=== PATIENT | male | born 1960 | race Hispanic/Latino ===

== ENCOUNTER → 2020-08-28 | Outpatient (CLI) | payer MEDICARE | END | disposition home or self-care (01) | LOC: RAH 08:23 | PROVIDERS: ATTEND Urology | DX: N20.0 Calculus of kidney (principal); N28.1 Cyst of kidney, acquired; R31.29 Other microscopic hematuria | CPT/HCPCS: 74176 ==

== ENCOUNTER 2020-11-09 23:53 | Emergency (ER) | payer MEDICARE ==
[2020-11-10] MEDS ORDERED: OCTYL 2-CYANOACRYLATE 1 EACH TP ONE (02:41)
== END 2020-11-10 05:07 | disposition home or self-care (01) ==
LOC: EDH 23:53
DX: S01.81XA Laceration without foreign body of other part of head, initial encounter (principal); X58.XXXA Exposure to other specified factors, initial encounter; Y93.89 Activity, other specified; Y92.89 Other specified places as the place of occurrence of the external cause; Y99.8 Other external cause status
CPT/HCPCS: 12013; 70450

== ENCOUNTER 2020-11-22 23:20 | Inpatient (IN) | payer MEDICARE ==
[~2020-11-22] VITALS: Ht 177.8 cm; Wt 57.3 kg
[2020-11-22 23:39] LABS: BASOPHILS % (AUTO) 0.1 % (0.0-5.0); HEMATOCRIT 36.5 % (42-54); LYMPHOCYTES % (AUTO) 6.4 % (21.0-51.0); MEAN CORPUSCULAR HEMOGLOBIN 28.5 pg (27.0-33.0); MEAN CORPUSCULAR VOLUME 91.9 fL (79-99); MONOCYTES % (AUTO) 2.4 % (3.0-13.0); NEUTROPHILS % (AUTO) 90.5 % (40.0-77.0); PLATELET COUNT (AUTO) 94 K/uL (130-400); RED BLOOD CELL COUNT(AUTO) 3.97 MIL/uL (4.50-6.20); RED CELL DISTRIBUTION WIDTH 17.1 % (11.0-15.5); WHITE BLOOD COUNT (AUTO) 8.8 K/uL (4.8-10.8)
[2020-11-22 23:52] LABS: INR 1.21 (0.85-1.15)
[2020-11-22 23:54] LABS: PARTIAL THROMBOPLASTIN TIME 26.4 SEC (26.3-35.5)
[2020-11-22 23:57] LABS: ALBUMIN 1.8 g/dL (3.5-5.0); BILIRUBIN,TOTAL 1.2 mg/dL (0.2-1.0); TOTAL PROTEIN, SERUM 7.3 g/dL (6.0-8.3)
[2020-11-23] VITALS (18 sets, daily range): BP systolic 109–154; BP diastolic 41–96
[2020-11-23] LABS: POTASSIUM 2.8 mmol/L (3.5-5.1)
[2020-11-23 00:17] LABS: B-TYPE NATRIURETIC PEPTIDE 21 pg/mL (0-100)
[2020-11-23 00:36] LABS: APPEARANCE,URINE Cloudy (CLEAR); BILIRUBIN,URINE Negative (NEGATIVE); COLOR,URINE Yellow (YELLOW); GLUCOSE, URINE (UA) Negative (NEGATIVE); KETONES,URINE Negative (NEGATIVE); LEUKOCYTE ESTERASE ,URINE Large (NEGATIVE); NITRATE,URINE Negative (NEGATIVE); OCCULT BLOOD,URINE Small (NEGATIVE); PH,URINE 5.5 (5.0-8.0); PROTEIN,URINE Trace mg/dL (NEGATIVE)
[2020-11-23 01:00] LABS: BACTERIA,URINE Many /HPF (None Seen); MUCUS,URINE Few LPF (None Seen); SQUAMOUS EPITHELIAL CELL,UR Rare /HPF (0-2)
[2020-11-23] MEDS ORDERED: CEFTRIAXONE 2GM VIAL ONE (01:50)
[2020-11-23] MEDS ORDERED: ACETAMINOPHEN 325 MG TAB PO PRN ×2 (02:00→12:00)
[2020-11-23] MEDS ORDERED: ONDANSETRON 4MG INJ IV PRN (02:00)
[2020-11-23] MEDS ORDERED: POTASSIUM CHLORIDE 20MEQ/100ML 100 ML IV ONE (02:05)
[2020-11-23 04:39] LABS: % IRON SATURATION 30.7 % (30-44)
[2020-11-23 04:49] LABS: CREATINE KINASE, TOTAL 11 U/L (21-232); MYOGLOBIN 168 ng/mL (10-92); PHOSPHORUS 4.3 mg/dL (2.5-4.9); TROPONIN I < 0.04 ng/mL (0.00-0.06)
[2020-11-23] MEDS: DEXTROSE 5%-WATER 1,000 ML IV SCH ×3 (05:51→21:02)
[2020-11-23] MEDS: MEROPENEM 500 MG VIAL IV SCH ×3 (06:16→21:45)
[2020-11-23 08:23] LABS: HEMATOCRIT 35.3 % (42-54); LYMPHOCYTES % (AUTO) 6.6 % (21.0-51.0); MEAN CORPUSCULAR HEMOGLOBIN 28.3 pg (27.0-33.0); MEAN CORPUSCULAR HGB CONC 30.3 g/dL (32.0-36.0); MEAN CORPUSCULAR VOLUME 93.4 fL (79-99); MONOCYTES % (AUTO) 2.2 % (3.0-13.0); NEUTROPHILS % (AUTO) 90.4 % (40.0-77.0); PLATELET COUNT (AUTO) 68 K/uL (130-400); RED BLOOD CELL COUNT(AUTO) 3.78 MIL/uL (4.50-6.20); RED CELL DISTRIBUTION WIDTH 17.1 % (11.0-15.5); WHITE BLOOD COUNT (AUTO) 6.5 K/uL (4.8-10.8)
[2020-11-23 08:35] LABS: CARBON DIOXIDE 29 mmol/L (21-32); CREATINE KINASE, TOTAL 14 U/L (21-232); CREATININE 2.1 mg/dL (0.5-1.5); GLOMERULAR FILTR. RATE CALC 35 mL/min (>60); GLUCOSE,RANDOM 151 mg/dL (70-105); MYOGLOBIN 184 ng/mL (10-92); POTASSIUM 3.1 mmol/L (3.5-5.1); TROPONIN I < 0.04 ng/mL (0.00-0.06)
[2020-11-23 08:39] LABS: CHLORIDE 137 mmol/L (101-111); SODIUM SERUM 173 mmol/L (136-145)
[2020-11-23 08:40] LABS: UREA NITROGEN, BLOOD 78 mg/dL (7-18)
[2020-11-23] MEDS ORDERED: FAMOTIDINE 20MG VIAL IV SCH (09:00)
[2020-11-23] MEDS: ENOXAPARIN SODIUM 30 MG/0.3 ML SQ SCH (09:30)
[2020-11-23 09:39] LABS: PLATELET MORPHOLOGY COMMENT DECREASED
[2020-11-23 11:16] LABS: CREATININE 1.9 mg/dL (0.5-1.5)
[2020-11-23 11:19] LABS: POTASSIUM 2.7 mmol/L (3.5-5.1)
[2020-11-23] MEDS ORDERED: LACTATED RINGERS 1000ML 1,000 ML IV SCH (11:30)
[2020-11-23] MEDS ORDERED: ACET325T51 PO (12:14)
[2020-11-23] MEDS ORDERED: BUSP5TAB3 PO (12:14)
[2020-11-23] MEDS ORDERED: PANT40TA55 PO (12:14)
[2020-11-23] MEDS ORDERED: POTA40LI17 PO (12:14)
[2020-11-23] MEDS ORDERED: PARO-66 PO (12:32)
[2020-11-23] MEDS ORDERED: FERR325T22 PO (12:32)
[2020-11-23] MEDS ORDERED: BENZ1TAB10 PO (12:32)
[2020-11-23] MEDS ORDERED: FINA5TAB41 PO (12:32)
[2020-11-23] MEDS ORDERED: LUBI24CA2 PO (12:32)
[2020-11-23] MEDS ORDERED: MIDO10TA PO (12:32)
[2020-11-23] MEDS ORDERED: BENZTROPINE MESYLATE 1 MG PO SCH (14:00)
[2020-11-23] MEDS: BENZTROPINE 0.5MG TAB PO SCH ×2 (14:47→21:01)
[2020-11-23 16:03] LABS: POTASSIUM 3.5 mmol/L (3.5-5.1)
[2020-11-23 16:15] LABS: CREATINE KINASE, TOTAL 47 U/L (21-232); MYOGLOBIN 165 ng/mL (10-92); TROPONIN I < 0.04 ng/mL (0.00-0.06)
[2020-11-23] MEDS: BUSPIRONE HCL 5 MG TABLET PO SCH (17:08)
[2020-11-23] MEDS: TAMSULOSIN HCL 0.4 MG CAP.ER.24H PO SCH (21:01)
[2020-11-23 21:07] LABS: POTASSIUM 2.9 mmol/L (3.5-5.1)
[2020-11-23] MEDS ORDERED: POTASSIUM CHLORIDE 20MEQ/100ML 100 ML IV PRN (21:30)
[2020-11-23] MEDS ORDERED: POTASSIUM CHLORIDE 10% ELIXIR 20 MEQ/15 ML UDCUP ONE (21:47)
[2020-11-23] MEDS: POTASSIUM CHLORIDE 10% ELIXIR 20 MEQ/15 ML UDCUP PO PRN (21:59)
[2020-11-23] MEDS: POTASSIUM CHLORIDE 20MEQ/100ML 100 ML IV PRN (21:59)
[2020-11-24] VITALS (24 sets, daily range): BP systolic 106–158; BP diastolic 60–90
[2020-11-24 00:41] LABS: POTASSIUM 3.5 mmol/L (3.5-5.1)
[2020-11-24 03:42] LABS: EOSINOPHILS % (AUTO) 0.5 % (0.0-8.0); HEMATOCRIT 32.2 % (42-54); LYMPHOCYTES % (AUTO) 9.1 % (21.0-51.0); MEAN CORPUSCULAR HEMOGLOBIN 27.9 pg (27.0-33.0); MEAN CORPUSCULAR HGB CONC 29.2 g/dL (32.0-36.0); MEAN CORPUSCULAR VOLUME 95.5 fL (79-99); MONOCYTES % (AUTO) 1.9 % (3.0-13.0); PLATELET COUNT (AUTO) 54 K/uL (130-400); RED BLOOD CELL COUNT(AUTO) 3.37 MIL/uL (4.50-6.20); RED CELL DISTRIBUTION WIDTH 17.5 % (11.0-15.5); WHITE BLOOD COUNT (AUTO) 6.2 K/uL (4.8-10.8)
[2020-11-24 03:51] LABS: CREATININE 2.1 mg/dL (0.5-1.5); POTASSIUM 3.6 mmol/L (3.5-5.1)
[2020-11-24] MEDS: DEXTROSE 5%-WATER 1,000 ML IV SCH ×3 (05:16→20:18)
[2020-11-24] MEDS: MEROPENEM 500 MG VIAL IV SCH ×3 (05:54→21:07)
[2020-11-24] MEDS: BUSPIRONE HCL 5 MG TABLET PO SCH ×2 (07:37→17:12)
[2020-11-24] MEDS: FERROUS SULFATE 325 MG TABLET.DR PO SCH (08:20)
[2020-11-24] MEDS: PAROXETINE HCL 20 MG TABLET PO SCH (08:20)
[2020-11-24] MEDS: FINASTERIDE 5 MG TABLET PO SCH (08:21)
[2020-11-24] MEDS: ENOXAPARIN SODIUM 30 MG/0.3 ML SQ SCH (08:21)
[2020-11-24] MEDS: BENZTROPINE 0.5MG TAB PO SCH ×3 (08:35→20:11)
[2020-11-24] MEDS ORDERED: PANTOPRAZOLE 40 MG TAB DR PO SCH (09:00)
[2020-11-24] MEDS ORDERED: NON-FORMULARY MEDICATION 1 EACH (Ferrous Sulfate 325 MG) PO SCH (09:00)
[2020-11-24 09:01] LABS: CREATININE 2.1 mg/dL (0.5-1.5); POTASSIUM 3.2 mmol/L (3.5-5.1)
[2020-11-24] MEDS: LUBIPROSTONE 24 MCG CAP PO SCH (09:06)
[2020-11-24] MEDS ORDERED: ALBUMIN (HUMAN) 25% 50 ML IV SCH (10:38)
[2020-11-24 10:41] LABS: CHLORIDE,URINE RANDOM 33 mmol/L (110-250); POTASSIUM,URINE RANDOM 29 mmol/L (25-125); SODIUM,URINE RANDOM 16 mmol/l (40-220)
[2020-11-24 12:57] LABS: POTASSIUM 3.1 mmol/L (3.5-5.1)
[2020-11-24] MEDS ORDERED: DIATR MEGLU/DIATRIZOATE SODIUM 30 ML BOTTLE ONE (16:26)
[2020-11-24] MEDS ORDERED: GLYCERIN ADULT SUPP.RECT RC SCH (17:00)
[2020-11-24 17:10] LABS: POTASSIUM 2.9 mmol/L (3.5-5.1)
[2020-11-24] MEDS: POTASSIUM CHLORIDE 10% ELIXIR 20 MEQ/15 ML UDCUP PO PRN (17:16)
[2020-11-24] MEDS: POTASSIUM CHLORIDE 20MEQ/100ML 100 ML IV PRN (19:44)
[2020-11-24] MEDS: TAMSULOSIN HCL 0.4 MG CAP.ER.24H PO SCH (20:11)
[2020-11-24] MEDS: PHARMACY COMMUNICATION MISC SCH ×2 (20:12→20:13)
[2020-11-24 20:31] LABS: CREATININE 1.9 mg/dL (0.5-1.5); POTASSIUM 3.3 mmol/L (3.5-5.1)
[2020-11-25] VITALS (22 sets, daily range): BP systolic 113–164; BP diastolic 59–94
[2020-11-25] MEDS: PHARMACY COMMUNICATION MISC SCH ×3 (00:45→20:45)
[2020-11-25 01:24] LABS: CREATININE 1.7 mg/dL (0.5-1.5); POTASSIUM 3.4 mmol/L (3.5-5.1)
[2020-11-25] MEDS: POTASSIUM CHLORIDE 20MEQ/100ML 100 ML IV PRN ×2 (01:39→12:29)
[2020-11-25 02:54] LABS: HEMATOCRIT 27.6 % (42-54); LYMPHOCYTES % (AUTO) 12.7 % (21.0-51.0); MEAN CORPUSCULAR HEMOGLOBIN 28.9 pg (27.0-33.0); MEAN CORPUSCULAR HGB CONC 31.2 g/dL (32.0-36.0); MEAN CORPUSCULAR VOLUME 92.6 fL (79-99); MONOCYTES % (AUTO) 2.5 % (3.0-13.0); NEUTROPHILS % (AUTO) 83.3 % (40.0-77.0); PLATELET COUNT (AUTO) 35 K/uL (130-400); RED BLOOD CELL COUNT(AUTO) 2.98 MIL/uL (4.50-6.20); RED CELL DISTRIBUTION WIDTH 17.1 % (11.0-15.5)
[2020-11-25 03:12] LABS: CREATININE 1.7 mg/dL (0.5-1.5); MAGNESIUM 2.4 mg/dL (1.80-2.40); PHOSPHORUS 2.7 mg/dL (2.5-4.9); POTASSIUM 3.7 mmol/L (3.5-5.1); THYROID STIMULATING HORMONE 0.12 uIU/mL (0.36-3.74)
[2020-11-25] MEDS: DEXTROSE 5%-WATER 1,000 ML IV SCH (05:57)
[2020-11-25] MEDS: MEROPENEM 500 MG VIAL IV SCH ×3 (05:58→21:26)
[2020-11-25] MEDS: BUSPIRONE HCL 5 MG TABLET PO SCH ×2 (06:39→16:24)
[2020-11-25] MEDS: BENZTROPINE 0.5MG TAB PO SCH ×3 (09:23→21:26)
[2020-11-25] MEDS: FERROUS SULFATE 325 MG TABLET.DR PO SCH (09:23)
[2020-11-25] MEDS: FINASTERIDE 5 MG TABLET PO SCH (09:23)
[2020-11-25] MEDS: PAROXETINE HCL 20 MG TABLET PO SCH (09:49)
[2020-11-25] MEDS: LUBIPROSTONE 24 MCG CAP PO SCH (09:49)
[2020-11-25] MEDS ORDERED: POLYETHYLENE GLYCOL 3350 17 GM POWD.PACK PO SCH ×2 (10:15→18:00)
[2020-11-25] MEDS: KCL 20 MEQ ERTAB PO PRN (12:29)
[2020-11-25 20:41] LABS: CREATININE 1.5 mg/dL (0.5-1.5); POTASSIUM 3.6 mmol/L (3.5-5.1)
[2020-11-25] MEDS: TAMSULOSIN HCL 0.4 MG CAP.ER.24H PO SCH (21:26)
[2020-11-26] VITALS (10 sets, daily range): BP systolic 105–146; BP diastolic 45–84
[2020-11-26 05:39] LABS: BASOPHILS % (AUTO) 0.2 % (0.0-5.0); EOSINOPHILS % (AUTO) 1.2 % (0.0-8.0); HEMATOCRIT 25.8 % (42-54); LYMPHOCYTES % (AUTO) 12.2 % (21.0-51.0); MEAN CORPUSCULAR HEMOGLOBIN 28.2 pg (27.0-33.0); MEAN CORPUSCULAR HGB CONC 30.6 g/dL (32.0-36.0); MEAN CORPUSCULAR VOLUME 92.1 fL (79-99); MONOCYTES % (AUTO) 2.9 % (3.0-13.0); PLATELET COUNT (AUTO) 30 K/uL (130-400); RED CELL DISTRIBUTION WIDTH 16.3 % (11.0-15.5); WHITE BLOOD COUNT (AUTO) 6.6 K/uL (4.8-10.8)
[2020-11-26 05:43] LABS: CREATININE 1.4 mg/dL (0.5-1.5); POTASSIUM 3.3 mmol/L (3.5-5.1)
[2020-11-26] MEDS: MEROPENEM 500 MG VIAL IV SCH ×3 (06:35→22:00)
[2020-11-26] MEDS ORDERED: ENOXAPARIN SODIUM 30 MG/0.3 ML SQ SCH (09:00)
[2020-11-26] MEDS: BENZTROPINE 0.5MG TAB PO SCH ×3 (09:44→21:00)
[2020-11-26] MEDS: FINASTERIDE 5 MG TABLET PO SCH (09:44)
[2020-11-26] MEDS: FERROUS SULFATE 325 MG TABLET.DR PO SCH (09:44)
[2020-11-26] MEDS: LUBIPROSTONE 24 MCG CAP PO SCH (10:03)
[2020-11-26] MEDS: PAROXETINE HCL 20 MG TABLET PO SCH (10:03)
[2020-11-26] MEDS: BUSPIRONE HCL 5 MG TABLET PO SCH ×2 (10:04→15:30)
[2020-11-26] MEDS: FONDAPARINUX SODIUM 2.5 MG/0.5 ML SQ SCH (15:30)
[2020-11-26] MEDS: POTASSIUM CHLORIDE 10% ELIXIR 20 MEQ/15 ML UDCUP PO PRN (15:38)
[2020-11-26] MEDS: TAMSULOSIN HCL 0.4 MG CAP.ER.24H PO SCH (21:00)
[2020-11-27 00:17] VITALS: BP 151/75
[2020-11-27] MEDS: ACETAMINOPHEN 325 MG TAB PO PRN ×2 (01:09→21:11)
[2020-11-27 04:52] LABS: HEMATOCRIT 24.2 % (42-54); MEAN CORPUSCULAR HEMOGLOBIN 28.2 pg (27.0-33.0); RED BLOOD CELL COUNT(AUTO) 2.66 MIL/uL (4.50-6.20); WHITE BLOOD COUNT (AUTO) 5.3 K/uL (4.8-10.8)
[2020-11-27] MEDS: KCL 20 MEQ ERTAB PO PRN (05:26)
[2020-11-27] MEDS: MEROPENEM 500 MG VIAL IV SCH ×3 (05:27→21:10)
[2020-11-27 05:39] VITALS: BP 142/64
[2020-11-27 05:41] LABS: CREATININE 1.3 mg/dL (0.5-1.5); MAGNESIUM 2.4 mg/dL (1.80-2.40); POTASSIUM 4.1 mmol/L (3.5-5.1)
[2020-11-27 07:30] VITALS: BP 128/74
[2020-11-27] MEDS: LUBIPROSTONE 24 MCG CAP PO SCH (10:38)
[2020-11-27] MEDS: PAROXETINE HCL 20 MG TABLET PO SCH (10:39)
[2020-11-27] MEDS: FINASTERIDE 5 MG TABLET PO SCH (10:39)
[2020-11-27] MEDS: BENZTROPINE 0.5MG TAB PO SCH ×3 (10:39→21:10)
[2020-11-27] MEDS: FERROUS SULFATE 325 MG TABLET.DR PO SCH (10:39)
[2020-11-27] MEDS: BUSPIRONE HCL 5 MG TABLET PO SCH ×2 (10:40→17:34)
[2020-11-27] MEDS: FONDAPARINUX SODIUM 2.5 MG/0.5 ML SQ SCH (10:41)
[2020-11-27 11:00] VITALS: BP 116/73
[2020-11-27 16:00] VITALS: BP 163/44
[2020-11-27 20:00] VITALS: BP 123/72
[2020-11-27] MEDS: TAMSULOSIN HCL 0.4 MG CAP.ER.24H PO SCH (21:10)
[2020-11-28] VITALS (8 sets, daily range): BP systolic 83–146; BP diastolic 39–96
[2020-11-28] MEDS: MEROPENEM 500 MG VIAL IV SCH ×3 (05:44→22:22)
[2020-11-28] MEDS: ACETAMINOPHEN 325 MG TAB PO PRN ×2 (05:44→22:22)
[2020-11-28] MEDS: BUSPIRONE HCL 5 MG TABLET PO SCH ×2 (05:44→16:44)
[2020-11-28] MEDS: BENZTROPINE 0.5MG TAB PO SCH ×3 (08:46→22:21)
[2020-11-28] MEDS: LUBIPROSTONE 24 MCG CAP PO SCH (08:46)
[2020-11-28] MEDS: PAROXETINE HCL 20 MG TABLET PO SCH (08:46)
[2020-11-28] MEDS: FONDAPARINUX SODIUM 2.5 MG/0.5 ML SQ SCH (08:47)
[2020-11-28] MEDS: FERROUS SULFATE 325 MG TABLET.DR PO SCH (09:00)
[2020-11-28] MEDS: FINASTERIDE 5 MG TABLET PO SCH (09:00)
[2020-11-28 14:27] LABS: EOSINOPHILS % (AUTO) 2.2 % (0.0-8.0); HEMATOCRIT 23.3 % (42-54); LYMPHOCYTES % (AUTO) 15.5 % (21.0-51.0); MEAN CORPUSCULAR HEMOGLOBIN 27.7 pg (27.0-33.0); MEAN CORPUSCULAR HGB CONC 30.5 g/dL (32.0-36.0); MONOCYTES % (AUTO) 5.9 % (3.0-13.0); PLATELET COUNT (AUTO) 62 K/uL (130-400); RED BLOOD CELL COUNT(AUTO) 2.56 MIL/uL (4.50-6.20); RED CELL DISTRIBUTION WIDTH 15.5 % (11.0-15.5); WHITE BLOOD COUNT (AUTO) 5.4 K/uL (4.8-10.8)
[2020-11-28] MEDS: TAMSULOSIN HCL 0.4 MG CAP.ER.24H PO SCH (22:21)
[2020-11-29 03:50] VITALS: BP 103/64
[2020-11-29 05:47] LABS: EOSINOPHILS % (AUTO) 2.2 % (0.0-8.0); LYMPHOCYTES % (AUTO) 20.2 % (21.0-51.0); MEAN CORPUSCULAR HEMOGLOBIN 27.9 pg (27.0-33.0); MEAN CORPUSCULAR HGB CONC 30.9 g/dL (32.0-36.0); MEAN CORPUSCULAR VOLUME 90.2 fL (79-99); MONOCYTES % (AUTO) 4.7 % (3.0-13.0); NEUTROPHILS % (AUTO) 72.9 % (40.0-77.0); PLATELET COUNT (AUTO) 90 K/uL (130-400); RED BLOOD CELL COUNT(AUTO) 2.44 MIL/uL (4.50-6.20); RED CELL DISTRIBUTION WIDTH 15.8 % (11.0-15.5)
[2020-11-29 05:54] LABS: CREATININE 1.2 mg/dL (0.5-1.5); POTASSIUM 3.9 mmol/L (3.5-5.1)
[2020-11-29] MEDS: BUSPIRONE HCL 5 MG TABLET PO SCH ×2 (06:15→17:05)
[2020-11-29] MEDS: MEROPENEM 500 MG VIAL IV SCH ×3 (06:15→20:20)
[2020-11-29 07:50] LABS: HEMATOCRIT 23.7 % (42-54)
[2020-11-29 08:00] VITALS: BP 106/64
[2020-11-29] MEDS: LUBIPROSTONE 24 MCG CAP PO SCH (08:40)
[2020-11-29] MEDS: FONDAPARINUX SODIUM 2.5 MG/0.5 ML SQ SCH (08:40)
[2020-11-29] MEDS: FERROUS SULFATE 325 MG TABLET.DR PO SCH (08:40)
[2020-11-29] MEDS: PAROXETINE HCL 20 MG TABLET PO SCH (08:40)
[2020-11-29] MEDS: BENZTROPINE 0.5MG TAB PO SCH ×3 (08:40→20:19)
[2020-11-29] MEDS: FINASTERIDE 5 MG TABLET PO SCH (08:40)
[2020-11-29 12:00] VITALS: BP_SYST 113; BP_SYST 114; BP_DIAS 57; BP_DIAS 66
[2020-11-29 16:00] VITALS: BP 92/45
[2020-11-29 19:51] VITALS: BP 95/59
[2020-11-29] MEDS: TAMSULOSIN HCL 0.4 MG CAP.ER.24H PO SCH (20:19)
[2020-11-29] MEDS: ACETAMINOPHEN 325 MG TAB PO PRN (20:20)
[2020-11-30 00:04] VITALS: BP 93/53
[2020-11-30 04:11] VITALS: BP 93/60
[2020-11-30] MEDS: MEROPENEM 500 MG VIAL IV SCH ×2 (05:56→15:22)
[2020-11-30] MEDS: BUSPIRONE HCL 5 MG TABLET PO SCH ×2 (05:57→15:23)
[2020-11-30 08:00] VITALS: BP 98/61
[2020-11-30] MEDS: FERROUS SULFATE 325 MG TABLET.DR PO SCH (09:37)
[2020-11-30] MEDS: FONDAPARINUX SODIUM 2.5 MG/0.5 ML SQ SCH (09:37)
[2020-11-30] MEDS: PAROXETINE HCL 20 MG TABLET PO SCH (09:37)
[2020-11-30] MEDS: LUBIPROSTONE 24 MCG CAP PO SCH (09:37)
[2020-11-30] MEDS: FINASTERIDE 5 MG TABLET PO SCH (09:37)
[2020-11-30] MEDS: BENZTROPINE 0.5MG TAB PO SCH ×3 (09:37→22:02)
[2020-11-30 12:00] VITALS: BP 116/70
[2020-11-30 16:00] VITALS: BP_SYST 101; BP_SYST 105; BP_DIAS 62; BP_DIAS 64
[2020-11-30 20:00] VITALS: BP 119/64
[2020-11-30] MEDS: TAMSULOSIN HCL 0.4 MG CAP.ER.24H PO SCH (22:02)
== END 2020-11-30 22:07 | disposition hospice, home (50) | DRG 689 ==
LOC: EDH 23:20 → EDHIP 11-23 01:54 → 2DH 11-23 05:52 → 4CH 11-26 16:45
PROVIDERS: ADMIT Internal Medicine; ATTEND Internal Medicine
DX: N30.80 Other cystitis without hematuria (principal); G93.41 Metabolic encephalopathy; E43 Unspecified severe protein-calorie malnutrition; N17.9 Acute kidney failure, unspecified; E87.1 Hypo-osmolality and hyponatremia; Z16.24 Resistance to multiple antibiotics; Z16.12 Extended spectrum beta lactamase (ESBL) resistance; J93.83 Other pneumothorax; Z68.1 Body mass index [BMI] 19.9 or less, adult; E87.8 Other disorders of electrolyte and fluid balance, not elsewhere classified; E86.0 Dehydration; E87.6 Hypokalemia; G20 Parkinson's disease; F02.80 Dementia in other diseases classified elsewhere, unspecified severity, without behavioral disturbance, psychotic disturbance, mood disturbance, and anxiety; D64.9 Anemia, unspecified; D69.6 Thrombocytopenia, unspecified; N18.9 Chronic kidney disease, unspecified; F79 Unspecified intellectual disabilities; B96.20 Unspecified Escherichia coli [E. coli] as the cause of diseases classified elsewhere; E03.9 Hypothyroidism, unspecified; E11.22 Type 2 diabetes mellitus with diabetic chronic kidney disease; F32.9 Major depressive disorder, single episode, unspecified; F41.9 Anxiety disorder, unspecified; I12.9 Hypertensive chronic kidney disease with stage 1 through stage 4 chronic kidney disease, or unspecified chronic kidney disease; N31.9 Neuromuscular dysfunction of bladder, unspecified; N40.0 Benign prostatic hyperplasia without lower urinary tract symptoms; N41.9 Inflammatory disease of prostate, unspecified; R13.12 Dysphagia, oropharyngeal phase; R62.7 Adult failure to thrive; Z51.5 Encounter for palliative care; Z66 Do not resuscitate; Z74.01 Bed confinement status; Z79.899 Other long term (current) drug therapy; R53.81 Other malaise; K59.00 Constipation, unspecified; Z20.822 Contact with and (suspected) exposure to COVID-19
CPT/HCPCS: 36415; 70450; 71045; 71250; 74018; 74176; 80048; 80051; 80053; 81001; 82533; 82550; 82948; 83540; 83550; 83605; 83690; 83735; 83874; 83880; 83935; 84100; 84145; 84439; 84443; 84481; 84484; 85014; 85018; 85025; 85027; 85045; 85610; 85730; 86850; 86900; 86901; 87077; 87088; 87186; 87426; 92610; 93005; 93306; 93356; G0378; J0696; J1650; J1652; J2185; J3480; J3490; J7070; P9047; Q9963; U0003